=== PATIENT | female | born 2000 | race Caucasian/White ===

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

== ENCOUNTER 2018-01-06 14:55 | Inpatient (IN) | payer OTHER ==
[2018-01-06] MEDS: LR 1,000 ML IV ×3 (17:01→21:56)
[2018-01-06] MEDS: LACTATED RINGER'S 1000 ML IV (17:01)
[2018-01-06] MEDS: PENICILLIN G POTASSIUM IV 5 MU in D5W MINI-BAG PLUS 100 ML IV (17:11)
[2018-01-06 17:22] LABS: HEMATOCRIT 34.8 % (36.0-47.0); HEMOGLOBIN 11.1 g/dl (12.0-15.5); MEAN CORPUSCULAR HEMOGLOBIN 25.8 pg (27.0-33.0); MEAN CORPUSCULAR HGB CONC 31.9 g/dl (32.0-36.5); MEAN CORPUSCULAR VOLUME 80.7 fl (80.0-96.0); PLATELET COUNT, AUTOMATED 366 10^3/uL (150-450); RED BLOOD COUNT 4.31 10^6/uL (4.00-5.40); RED CELL DISTRIBUTION WIDTH 16.1 % (11.5-14.5); WHITE BLOOD COUNT 12.9 10^3/uL (4.0-10.0)
[2018-01-06] MEDS: miSOPROStol 50 MCG 1/2 TAB (S0191) SL (17:46)
[2018-01-06] MEDS: PENICILLIN G POTASSIUM IV 2.5 MU in APPROPRIATE DILUENT 1 EA IV (21:00)
[2018-01-06] MEDS: miSOPROStol 50 MCG 1/2 TAB (S0191) PO (21:45)
[2018-01-06] MEDS: PROMETHAZINE INJ 25 MG/ML VIAL (J2550) IV (23:45)
[2018-01-06] MEDS: BUTORPHANOL 2 MG/ML INJ (J0595) IV (23:45)
[2018-01-07] MEDS: LR 1,000 ML IV ×2 (00:56→05:23)
[2018-01-07] MEDS: PENICILLIN G POTASSIUM IV 2.5 MU in APPROPRIATE DILUENT 1 EA IV ×2 (00:56→05:00)
[2018-01-07] MEDS ORDERED: FENTANYL 2MCG/ML ROPIVACAINE 0.2% IN 0.9% NACL 200ML IVBAG As Ordered (01:08)
[2018-01-07] MEDS ORDERED: OXYTOCIN DRIP 30 UNITS in APPROPRIATE DILUENT 1 EA IV (01:15)
[2018-01-07] MEDS ORDERED: ePHEDrine SULFATE 25 MG/5 ML(5MG/ML) SYRINGE As Ordered (02:31)
[2018-01-07] MEDS ORDERED: REFRIGERATOR IV KEYS XX (03:15)
[2018-01-07] MEDS ORDERED: ONDANSETRON 4MG/2ML VIAL (J2405) IV ×2 (03:15→08:00)
[2018-01-07] MEDS ORDERED: FENTANYL/ROPIVACAINE/NACL BAG 200 ML EPIDURAL (03:15)
[2018-01-07] MEDS ORDERED: EPIDURAL/PCA KEYS XX (03:15)
[2018-01-07] MEDS ORDERED: LACTATED RINGER'S 1000 ML IV (03:15)
[2018-01-07] MEDS ORDERED: ePHEDrine SULFATE 25 MG/5 ML(5MG/ML) SYRINGE IV (03:15)
[2018-01-07] MEDS ORDERED: diphenhydrAMINE INJ 50MG/ML VIAL (J1200) IV (03:15)
[2018-01-07] MEDS ORDERED: NALOXONE INJ 0.4 MG/1 ML VIAL (J2310) IV (03:15)
[2018-01-07] MEDS ORDERED: EPIDURAL COMMENT XX (03:15)
[2018-01-07] MEDS ORDERED: ACETAMINOPHEN 325 MG TAB As Ordered (03:54)
[2018-01-07] MEDS ORDERED: LR 1,000 ML IV (07:55)
[2018-01-07] MEDS ORDERED: PROMETHAZINE 25 MG TAB PO (08:00)
[2018-01-07] MEDS ORDERED: ACETAMINOPHEN 500 MG TAB PO (08:00)
[2018-01-07] MEDS ORDERED: DIBUCAINE 1% OINTMENT 30GM TOP (08:00)
[2018-01-07] MEDS ORDERED: DOCUSATE SODIUM 100 MG CAP PO (08:00)
[2018-01-07] MEDS: PRENATAL VITAMINS CHEWABLE TABLET PO (09:00)
[2018-01-07] MEDS: IBUPROFEN 800 MG TAB PO (09:18)
[2018-01-07] MEDS: MEASLES,MUMPS,RUBELLA VACCINE INJ (MMR-II) (90707) SC (13:11)
[2018-01-07] MEDS: RHOGAM 300 MCG (1500 IU) INJ (J2790) IM (13:11)
[2018-01-07] MEDS: ACETAMINOPHEN TAB 650MG DOSE (2X325MG) PO (19:09)
[2018-01-07] MEDS: OXYTOCIN DRIP 30 UNITS in APPROPRIATE DILUENT 1 EA IV (19:09)
[2018-01-08] MEDS: PRENATAL VITAMINS CHEWABLE TABLET PO (08:13)
[2018-01-09] MEDS: PRENATAL VITAMINS CHEWABLE TABLET PO (09:00)
== END 2018-01-09 10:10 | disposition home or self-care (01) | DRG 775 ==
LOC: M LDI 14:55 → M OBS 01-07 10:07
PROVIDERS: Obstetrics & Gynecology
PROC: 3E0DXGC Introduction of Other Therapeutic Substance into Mouth and Pharynx, External Approach (ICD-10-PCS; 2018-01-06)
PROC: 10E0XZZ Delivery of Products of Conception, External Approach (ICD-10-PCS; principal; 2018-01-07)
PROC: 0HQ9XZZ Repair Perineum Skin, External Approach (ICD-10-PCS; 2018-01-07)
DX: O48.0 Post-term pregnancy (principal); Z37.0 Single live birth; Z3A.40 40 weeks gestation of pregnancy; O99.824 Streptococcus B carrier state complicating childbirth; O70.0 First degree perineal laceration during delivery

== ENCOUNTER 2018-07-07 00:40 | Emergency (ER) | payer OTHER | END 2018-07-07 01:29 | disposition home or self-care (01) | LOC: M ED 00:40 | DX: J02.9 Acute pharyngitis, unspecified (principal) | CPT/HCPCS: 87880 ==

== ENCOUNTER → 2019-04-30 | Outpatient (REF) | payer OTHER ==
[~2019-04-30] MED LIST changes: +COLA100C5 PO; +IBUP-1114 PO; +MAPA500T2 PO; +PRENTAB9 PO; -UNIS25TA2 PO; +UNIS25TA3 PO
[2019-04-30 20:08] LABS: BASO % 0.5 % (0.0-1.0); EOS # 0.2 10^3/uL (0.0-0.5); EOS % 1.9 % (0.0-3.0); HEMATOCRIT 43.5 % (36.0-47.0); HEMOGLOBIN 14.3 g/dl (12.0-15.5); LYMPH # 2.9 10^3/uL (1.5-5.0); LYMPH % 33.1 % (24.0-44.0); MEAN CORPUSCULAR HEMOGLOBIN 28.4 pg (27.0-33.0); MEAN CORPUSCULAR HGB CONC 32.9 g/dl (32.0-36.5); MEAN CORPUSCULAR VOLUME 86.5 fl (80.0-96.0); MONO # 0.6 10^3/uL (0.0-0.8); MONO % 6.5 % (0.0-5.0); NEUTROPHILS # 5.1 10^3/uL (1.5-8.5); NEUTROPHILS % 57.8 % (36.0-66.0); PLATELET COUNT, AUTOMATED 400 10^3/uL (150-450); RED BLOOD COUNT 5.03 10^6/uL (4.00-5.40); WHITE BLOOD COUNT 8.8 10^3/uL (4.0-10.0)
[2019-04-30 20:24] LABS: ALBUMIN 3.5 GM/DL (3.2-5.2); ALT/SGPT 14 U/L (12-78); BILIRUBIN,TOTAL 0.4 MG/DL (0.2-1.0); BLOOD UREA NITROGEN 12 MG/DL (7-18); CALCIUM LEVEL 8.9 MG/DL (8.5-10.1); CARBON DIOXIDE LEVEL 25 MEQ/L (21-32); CHLORIDE LEVEL 104 MEQ/L (98-107); CHOLESTEROL LEVEL 165 MG/DL (<200); CHOLESTEROL RISK RATIO 2.946 (<5); FREE T4 0.91 NG/DL (0.78-1.33); GLUCOSE, FASTING 79 MG/DL (70-100); HDL CHOLESTEROL 56 MG/DL (>40); LDL CHOLESTEROL 70 MG/DL (<100); NON-HDL-C 109 MG/DL; POTASSIUM SERUM 4.3 MEQ/L (3.5-5.1); SODIUM LEVEL 139 MEQ/L (136-145); TOTAL 25(OH) VITAMIN D 25.4 NG/ML (30.0-100.0); TOTAL PROTEIN 7.3 GM/DL (6.4-8.2); TRIGLYCERIDES LEVEL 197 MG/DL (<150)
[2019-04-30 20:57] LABS: HEMOGLOBIN A1c 5.5 %
== END ==
LOC: M LAB REF 19:47
PROVIDERS: ATTEND Nurse Practitioner Family
DX: Z00.00 Encounter for general adult medical examination without abnormal findings (principal)

== ENCOUNTER → 2019-05-07 | Outpatient (CLI) | payer OTHER ==
--- NOTE | 2019-05-07 15:37 | REP ---
Lumbar spine series: Three views. History: Chronic low back pain. Findings: Lumbar vertebral body heights are preserved. Disc spaces are maintained. Alignment is normal. Pedicles and posterior elements are intact. Sacrum and SI joints are unremarkable. Psoas margins are symmetric. Impression: Negative radiographs of the lumbar spine. Electronically Signed by Miguel Angel Stafford MD 05/07/2019 03:49 P
[2019-05-07 17:38] LABS: APPEARANCE, URINE CLOUDY (CLEAR); BACTERIA, URINE AUTO NEGATIVE (NEGATIVE); BILIRUBIN, URINE AUTO NEGATIVE (NEGATIVE); BLOOD, URINE BLOOD NEGATIVE (NEGATIVE); COLOR, URINE YELLOW (YELLOW); GLUCOSE, URINE (UA) AUTO NEGATIVE (NEGATIVE); KETONE, URINE AUTO NEGATIVE (NEGATIVE); LEUKOCYTE ESTERASE, URINE AUTO 3+ (NEGATIVE); NITRITE, URINE AUTO NEGATIVE (NEGATIVE); PROTEIN, URINE AUTO NEGATIVE (NEGATIVE); RBC, URINE AUTO 1 /HPF (0-3); SPECIFIC GRAVITY URINE AUTO 1.014 (1.002-1.035); SQUAMOUS EPITHELIAL CELL UR AU 11 /HPF (0-6); UROBILINOGEN, URINE AUTO 0.2 mg/dL (0.0-2.0); WBC, URINE AUTO 18 /HPF (0-3)
== END ==
LOC: M RAD 10:56
PROVIDERS: ATTEND Nurse Practitioner Family
DX: M54.5 Low back pain (principal)

== ENCOUNTER → 2019-07-27 | Outpatient (CLI) | payer OTHER ==
--- NOTE | 2019-07-27 11:29 | REPVR ---
PROCEDURE INFORMATION: Exam: MR Lumbar Spine Without Contrast. Exam date and time: 07/27/2019 11:04 AM Age: 19 years old Clinical indication: Low back pain; Additional info: Cervicalgia, low back pain 2 studies TECHNIQUE: Imaging protocol: Multiplanar magnetic resonance images of the lumbar spine without intravenous contrast. COMPARISON: CR Spine, Lumbosacral, partial 05/07/2019 11:15 AM FINDINGS: Vertebrae: There is straightening of the cervical spine which could be secondary to positioning or muscle spasm. The lumbar vertebral bodies are normal in height , signal intensity and alignment.No acute fracture or dislocation is seen.There is a normal proportion of hematopoietic bone marrow and fat for this patient's age.There is no evidence of abnormal bone marrow signal intensity to suggest contusion or infection. Spinal epidural space: There is no evidence of epidural masses or hemorrhage. Spinal cord: The conus medullaris is normal. The cauda equina nerve roots demonstrate no crowding or displacement. L1-L2: There is no significant degenerative disc herniation.The spinal canal and neural foramina are patent and without significant stenosis. L2-L3: There is no significant degenerative disc herniation.The spinal canal and neural foramina are patent and without significant stenosis. L3-L4: There is no significant degenerative disc herniation.The spinal canal and neural foramina are patent and without significant stenosis. L4-L5: There is no significant degenerative disc herniation.The spinal canal and neural foramina are patent and without significant stenosis. L5-S1: Mild desiccation changes. There is a mild diffuse posterior bulge causing mild effacement of the thecal sac.The facet joints demonstrate mild degenerative hypertrophy and sclerosis.There is no significant spinal canal or foraminal stenosis. Soft tissues: The prevertebral soft tissues appear normal. IMPRESSION: MRI of the lumbar spine reveals mild diffuse posterior bulge at L5-S1 level.There is no significant spinal canal or foraminal stenosis.No acute fracture or dislocation is seen. Electronically signed by: Jose Enrique Smith On 07/27/2019 11:29:50 AM
--- NOTE | 2019-07-27 11:32 | REPVR ---
PROCEDURE INFORMATION: Exam: MR Cervical Spine Without Contrast Exam date and time: 07/27/2019 11:04 AM Age: 19 years old Clinical indication: Pain; Cervicalgia; Additional info: Cervicalgia, low back pain 2 studies TECHNIQUE: Imaging protocol: Multiplanar magnetic resonance images of the cervical spine without contrast. COMPARISON: No relevant prior studies available. FINDINGS: Vertebrae: There is straightening of the cervical spine which could be secondary to positioning or muscle spasm. The cervical vertebral bodies are normal height and alignment.No acute fracture or dislocation is seen.The atlantoaxial articulation is normal.There is a normal proportion of hematopoietic bone marrow and fat for this patient's age.There is no evidence of abnormal bone marrow signal intensity to suggest contusion or infection. Spinal cord: The cervical spinal cord is normal in thickness and signal intensity.There is no cord compression or intramedullary signal abnormality. Spinal epidural space: There is no evidence for epidural mass or hemorrhage. C2-C3: No significant disc disease. No significant spinal stenosis. C3-C4: There is no significant degenerative disc herniation.The spinal canal and neural foramina are patent and without significant stenosis. C4-C5: There is a mild diffuse posterior bulge causing mild effacement of the thecal sac.There is no significant spinal canal or foraminal stenosis. C5-C6: There is a mild diffuse posterior bulge causing mild effacement of the thecal sac.There is no significant spinal canal or foraminal stenosis. C6-C7: There is a mild diffuse posterior bulge causing mild effacement of the thecal sac.There is no significant spinal canal or foraminal stenosis. C7-T1: There is no significant degenerative disc herniation.The spinal canal and neural foramina are patent and without significant stenosis. Brain: The visualized brain parenchyma is unremarkable. Vertebral arteries: Expected flow voids in the vertebral arteries. Soft tissues: The prevertebral soft tissues appear normal. IMPRESSION: MRI of the cervical spine reveals mild multilevel degenerative spondylitic changes and degenerative disc disease as described above. Normal cervical spinal cord.There is no significant spinal canal or foraminal stenosis. Electronically signed by: Jose Enrique Smith On 07/27/2019 11:32:02 AM
== END ==
LOC: M RAD 09:17
PROVIDERS: ATTEND Physician Assistant
DX: M51.27 Other intervertebral disc displacement, lumbosacral region (principal); M54.5 Low back pain; M54.2 Cervicalgia

== ENCOUNTER → 2020-05-11 | Outpatient (REF) | payer OTHER | LOC: M PLALAB 14:12 | PROVIDERS: ATTEND Obstetrics & Gynecology | DX: Z12.4 Encounter for screening for malignant neoplasm of cervix (principal) ==

== ENCOUNTER → 2020-05-11 | Outpatient (REF) | payer OTHER | LOC: M SFHCWAGY 19:08 | PROVIDERS: ATTEND Obstetrics & Gynecology | DX: Z12.4 Encounter for screening for malignant neoplasm of cervix (principal); N76.0 Acute vaginitis | CPT/HCPCS: G0123; G0463 ==

== ENCOUNTER → 2021-04-04 | Outpatient (REF) | payer OTHER | LOC: M LAB REF 19:08 | PROVIDERS: ATTEND Physician Assistant | DX: J02.9 Acute pharyngitis, unspecified (principal) ==